=== PATIENT | female | born 1970 | race Caucasian/White ===

== ENCOUNTER → 2017-04-23 | Day surgery (SDC) | payer OTHER, MEDICARE ==
--- NOTE | 2017-04-22 12:42 | History & Physical Pre-Op ---
General Information and HPI History of Present Illness: The patient is a 46-year-old 0 with history of chronic menorrhagia currently treated with oral contraceptives. Patient desires surgical treatment and discontinuation of oral contraceptives. The patient is learning disabled and the risks and benefits of the procedure have been discussed with her legal guardian who has consented for this procedure for the patient. Past History Medical History Respiratory: asthma Gastrointestinal: GERD Psychiatric: anxiety Surgical History Pertinent Surgical History: ovarian cystectomy Review of Systems Review of Systems Constitutional: Reports: no symptoms. EENTM: Reports: no symptoms. Cardiovascular: Reports: no symptoms, see HPI. Respiratory: Reports: no symptoms. GI: Reports: no symptoms. Genitourinary: Reports: see HPI. Musculoskeletal: Reports: no symptoms. Skin: Reports: no symptoms. Neurological/Psychological: Reports: no symptoms. Hematologic/Endocrine: Reports: no symptoms. Immunologic/Allergic: Reports: no symptoms. All Other Systems: Reviewed and Negative Exam & Diagnostic Data Physical Exam: Chest: Clear to auscultation bilaterally Cardiovascular: Normal S1, S2 Abdomen: Soft nontender no mass Pelvic: Small introitus Extremities: No clubbing cyanosis or edema Assessment/Plan Assessment/Plan: Menorrhagia Plan: D&C hysteroscopy and NovaSure ablation As Ranked By This Provider Problem List: 1. Menorrhagia
[~2017-04-23] VITALS: Ht 147.3 cm; Wt 66.2 kg
[~2017-04-23] MED LIST: ALL DAY ALLERGY10 MG PO; AZURETTE 28 DA1 EACH PO; BUSPIRONE HCL10 M1 PO; MONTELUKAST SOD10 M1 PO; MULTIVITAMINS1 EAC9 PO; RANITIDINE HCL150 MG PO
--- NOTE | 2017-05-01 12:07 | Operative Report ---
Operative/Inv Procedure Report Surgery Date: 04/23/17 Name of Procedure: D&C hysteroscopy and NovaSure ablation attempted Pre-Operative Diagnosis: Menorrhagia Post-Operative Diagnosis: Small uterine cavity Estimated Blood Loss: scant Surgeon/Technical Professional: Jemal Sullivan MD Anesthesia: laryngeal mask airway Operative/Procedure Note Note: The patient was brought to the operating room and placed on the OR table in the dorsal supine position. She was given adequate anesthesia and repositioned in modified dorsal lithotomy. She was sterile fashion. A small Davina retractor was used to identify the cervix which was grasped with a single-tooth tenaculum. Was injected 1% lidocaine with epinephrine 2 ml in each quadrant. An endocervical curettage was performed revealing a small amount of tissue. The uterus was then sounded to 7 cm. The cervix was serially dilated to accommodate the hysteroscope was placed into the fundus and saline was activated. No polyps or fibroids were noted hysteroscope was removed. The NovaSure was placed into the uterus for a depth of 5 cm however with several attempts the width of the uterus remained at 2-1/2 cm. The NovaSure device would not activate secondary to a narrow width of the uterine cavity. At this point the NovaSure was aborted the instruments removed hemostasis was verified patient was sent to recovery in good condition. All needle, sponge, and instrument counts were correct at the end of the procedure 2
== END ==
LOC: STS 01:56
DX: N92.0 Excessive and frequent menstruation with regular cycle (principal); K21.9 Gastro-esophageal reflux disease without esophagitis; N85.8 Other specified noninflammatory disorders of uterus; J45.909 Unspecified asthma, uncomplicated
CPT/HCPCS: 81025; 88305; J0131; J2250